=== PATIENT | female | born 1990 | race Caucasian/White ===

== ENCOUNTER → 2021-12-19 | Day surgery (SDC) | payer OTHER | END | disposition home or self-care (01) | LOC: OR 09:46 | DX: S43.51XA Sprain of right acromioclavicular joint, initial encounter (principal); M75.51 Bursitis of right shoulder; V49.9XXA Car occupant (driver) (passenger) injured in unspecified traffic accident, initial encounter; G89.18 Other acute postprocedural pain; F41.9 Anxiety disorder, unspecified; F32.A Depression, unspecified; F17.210 Nicotine dependence, cigarettes, uncomplicated; Z79.899 Other long term (current) drug therapy | CPT/HCPCS: 84703; C1713; J0171; J0690; J1100; J1170; J1885; J2001; J2250; J2370; J2405; J2704; J2795; J3010; J7120 ==